=== PATIENT | male | born 1975 | race Caucasian/White ===

== ENCOUNTER 2019-02-21 10:11 | Emergency (ER) | payer SELFPAY ==
--- NOTE | 2019-02-21 10:17 | DI.RAD.S_ITS ---
PROCEDURE: XR HAND LT MIN 3V INDICATIONS: pain injury TECHNIQUE: 3 views of the hand(s) acquired. COMPARISON: None. FINDINGS: Bones: Comminuted fifth metacarpal neck fracture. Minimal displacement and slight apex dorsal angulation. No dislocation. Nondisplaced fracture at the fourth metacarpal base. Carpal bones are normally aligned. No suspicious bony lesions. Soft tissues: No suspicious soft tissue calcifications. IMPRESSION: Fifth metacarpal neck fracture. Fourth metacarpal base fracture. Dictated by: Priscilla Hampton M.D. on 02/21/2019 at 10:37 Approved by: Prisclila Hampton M.D. on 02/21/2019 at 10:39
[2019-02-21 10:18] VITALS: BP 116/71; PULSE 74; RESP 15; TEMP 36.4; O2SAT 99; BMI 23.7
--- NOTE | 2019-02-21 10:38 | ED.UPPEXIN ---
HPI - Extremity Injury (Upper) General Chief Complaint: Extremity Injury, Upper Stated Complaint: Fell, thinks hand broken Time Seen by Provider: 02/21/19 10:18 Source: patient Mode of arrival: ambulatory Limitations: no limitations History of Present Illness HPI narrative: Patient is a 43-year-old male presenting with left hand pain. He said he was standing on about a 4 ft ladder he fell roughly 6-8 feet. He was trying to catch himself on the way down hitting his left hand. He has pain in his left pinky with an obvious deformity. No numbness or tingling. He has no other injuries. No head injury no LOC. Related Data Previous Rx's Medication Instructions Recorded hydrocodone-acetaminophen [[place]] 1 tab PO Q4-6H PRN #10 tab 02/21/19 Allergies Allergy/AdvReac Type Severity Reaction Status Date / Time aspirin Allergy Verified 02/21/19 10:18 codeine Allergy Verified 02/21/19 10:18 Review of Systems Review of Systems GENERAL: Denies chills,fever HEENT: Denies throat pain RESPIRATORY: Denies dyspnea, cough, wheezing CARDIOVASCULAR: Denies chest pain, palpitations GASTROINTESTINAL: Denies nausea, vomiting MUSCULOSKELETAL: See HPI SKIN: No rash, no laceration, no pruritus NEUROLOGIC: Denies weakness, dizziness, headache, numbness 8 point review of systems is negative except for those stated above and HPI [facility] Medical History Not up to date with tetanus toxoid immunization (Acute) Patient denies significant medical history (Acute) Social History Smoking Status: Current every day smoker Social History Smoking Status: Current every day smoker Exam Initial Vital Signs Initial Vital Signs: Vital Signs Temperature 97.5 F L 02/21/19 10:18 Pulse Rate 74 02/21/19 10:18 Respiratory Rate 15 02/21/19 10:18 Blood Pressure 116/71 02/21/19 10:18 Pulse Oximetry 99 02/21/19 10:18 GENERAL: Well-appearing, well-nourished and in no acute distress. HEAD: Atraumatic no contusions no abrasion NECK: Supple no vertebral tenderness no JVD CARDIOVASCULAR: peripheral pulses in tact, cap refill <2 sec RESPIRATORY: No respiratory distress, speaks in full sentences without difficulty EXTREMITIES: Normal range of motion, no clubbing or edema. Neurovascularly intact -left hand swelling at the 5th MCP. Decreased range of motion due to pain. Neurovascularly intact. NEUROLOGICAL: Cranial nerves II through XII grossly intact. Normal gait and speech. SKIN: Warm, dry, no petechiae, no rashes or lesions. Procedures Orthopedic Fracture Reduction Fracture #1: Time Out Performed: Yes Side: left Fracture Reduction Location: finger (Left 5th MCP) Analgesia: hematoma block Technique: direct manipulation and traction/counter-traction Post Reduction X-rays Demonstrate: anatomical reduction Post-reduction neuro exam: intact Post-reduction vascular exam: intact Splint Applied: Yes Patient Tolerated Procedure: Well Orthopedic Splinting/Casting Injury #1: Side: left Upper Extremity Injury Location: forearm Upper Extremity Immobilizer: ulnar gutter Post splinting neuro exam: intact Post splinting vascular exam: intact Placed by: Provider Course Orders Ordered: ED Orders 02/21/19 10:17 XR hand LT min 3V Stat 02/21/19 11:05 XR hand LT 2V Stat Discontinued Medications Hydromorphone HCl (Dilaudid) 1 mg SUBCUT Q4H PRN PRN Reason: Pain, Severe (7-10) Last Admin: 02/21/19 10:50 Dose: 1 mg Vital Signs - 8 hr 02/21/19 10:18 Temperature 97.5 F L Pulse Rate 74 Respiratory Rate 15 Blood Pressure 116/71 Pulse Oximetry 99 MDM - Extremity Injury (Upper) Imaging Data Left hand #1: Radiologist's impression: PROCEDURE: XR HAND LT MIN 3V INDICATIONS: pain injury TECHNIQUE: 3 views of the hand(s) acquired. COMPARISON: None. FINDINGS: Bones: Comminuted fifth metacarpal neck fracture. Minimal displacement and slight apex dorsal angulation. No dislocation. Nondisplaced fracture at the fourth metacarpal base. Carpal bones are normally aligned. No suspicious bony lesions. Soft tissues: No suspicious soft tissue calcifications. IMPRESSION: Fifth metacarpal neck fracture. Fourth metacarpal base fracture. Dictated by: Priscilla Hampton M.D. on 02/21/2019 at 10:37 lEFT HAND #2: Radiologist's impression: PROCEDURE: XR HAND LT 2V INDICATIONS: reduction TECHNIQUE: 3views of the hand(s) acquired. COMPARISON: [facility], CR, XR HAND LT MIN 3V, 02/21/2019, 10:23. FINDINGS: Bones: Splint material obscures fine bony detail. There is preserved alignment of the fifth metacarpal and metacarpal phalangeal joint. Decreased angulation of the comminuted fifth metacarpal fracture seen previously. Soft tissues: No suspicious soft tissue calcifications. IMPRESSION: Postreduction of mildly angulated fifth metacarpal fracture.. Dictated by: Priscilla Hampton M.D. on 02/21/2019 at 12:02 [facility] Narrative Medical decision making narrative: THE PATIENT WAS OFFERED A TETANUS SHOT HOWEVER HE DECLINED AT THIS TIME. Discharge Plan Departure Patient Disposition: Home Clinical Impression: Fracture of fifth metacarpal bone of left hand Qualifiers: Encounter type: initial encounter Fracture type: closed Metacarpal location: base Fracture alignment: nondisplaced Qualified Code(s): S62.347A - Nondisplaced fracture of base of fifth metacarpal bone, left hand, initial encounter for closed fracture Fracture of 4th metatarsal Qualifiers: Encounter type: initial encounter Fracture type: closed Physeal involvement: unspecified Laterality: left Qualified Code(s): S92.342A - Displaced fracture of fourth metatarsal bone, left foot, initial encounter for closed fracture Discharge Date/Time: 02/21/19 12:03 Interventions: ED Discharge Assessment Last Done: 02/21/19 12:03 Activity Restrictions/Additional Instructions: *You have been diagnosed with left 5th metacarpal fracture *What to do: Need to keep the splint on at all times. His may elevate ice *Continue to take medications as directed [place] 1 tab every 6 hr if needed for severe pain *Follow up with your primary care provider in 2-3 days, call Orthopedics 1st thing tomorrow for follow-up appointment this week or next week *Return to ER if you should have any new, increasing numbness, tingling, pain, worsening or concerning symptoms CONTROLLED SUBSTANCE DISCHARGE (Narcotoic/benzodiazepine/Flexeril/Phenergan) 1. You have been prescribed narcotic medications, it does have acetaminophen/Tylenol/paracetamol in it so do not take extra Tylenol or Tylenol containing products 2. Please understand that we cannot provide further refills of narcotics, benzodiazepines or controlled substances through the ED and her pain management will need to be through your provider. 3. While on these medications you cannot drive or operate heavy machinery. 4. You cannot sign legal documents or perform any duties such as this. 5. As long as you're taking opiate pain medications he should also be taking a stool softener such as Colace, Dulcolax, MiraLAX or prune juice, to help avoid constipation. Prescriptions: New hydrocodone-acetaminophen [[place]] 5-325 mg tablet 1 tab PO Q4-6H PRN (Reason: pain) Qty: 10 RF: 0 Referrals: [facility] [Provider Group]
[2019-02-21] MEDS: HYDROMORPHONE 2 MG INJ 1 MG SUBCUT (10:50)
--- NOTE | 2019-02-21 11:05 | DI.RAD.S_ITS ---
PROCEDURE: XR HAND LT 2V INDICATIONS: reduction TECHNIQUE: 3views of the hand(s) acquired. COMPARISON: [facility], CR, XR HAND LT MIN 3V, 02/21/2019, 10:23. FINDINGS: Bones: Splint material obscures fine bony detail. There is preserved alignment of the fifth metacarpal and metacarpal phalangeal joint. Decreased angulation of the comminuted fifth metacarpal fracture seen previously. Soft tissues: No suspicious soft tissue calcifications. IMPRESSION: Postreduction of mildly angulated fifth metacarpal fracture.. Dictated by: Priscilla Hampton M.D. on 02/21/2019 at 12:02 Approved by: Priscilla Hampton M.D. on 02/21/2019 at 12:03
--- NOTE | 2019-02-21 11:06 | PC.NURSE ---
pt reports, cleaning his garage putting stuff away, he was on the ladder about 8fooot height, leaning and ladder went out, occured approx 950am, now with left hand pinky finger pain, also pt is left handed. denies loc or neck or back pain. healthy.
--- NOTE | 2019-02-21 11:09 | PC.NURSE ---
assisted dr bassett , applied moncho fx, splint, distal cms post application intact. pt cooperative with procedure. female at bs.
--- NOTE | 2019-02-21 11:18 | PC.NURSE ---
post splint applications.
== END 2019-02-21 12:03 | disposition home or self-care (01) ==
PROVIDERS: Emergency Provider Emergency Medicine
DX: S62.347A Nondisplaced fracture of base of fifth metacarpal bone, left hand, initial encounter for closed fracture (principal); S92.342A Displaced fracture of fourth metatarsal bone, left foot, initial encounter for closed fracture; W11.XXXA Fall on and from ladder, initial encounter
CPT/HCPCS: 26742; 29125; 73120; 73130; 96372; 99282; 99283; J1170